=== PATIENT | female | born 1975 | race Caucasian/White ===

== ENCOUNTER 2024-04-11 14:26 | Outpatient (CLI) | payer BC ==
[~2024-04-11 14:26] MED LIST: Magnevist 469MG/ML 20 ML VIAL ONE
== END 2024-04-11 14:27 | disposition home or self-care (01) ==
LOC: CSHMRI 14:26
PROVIDERS: ATTEND Obstetrics & Gynecology
DX: E22.1 Hyperprolactinemia (principal); N91.2 Amenorrhea, unspecified; E23.7 Disorder of pituitary gland, unspecified
CPT/HCPCS: 70553